=== PATIENT | male | born 1990 | race Caucasian/White ===

== ENCOUNTER 2017-03-03 06:32 | Emergency (ER) | payer SELFPAY ==
[~2017-03-03] VITALS: Ht 182.9 cm; Wt 90.7 kg
[~2017-03-03 06:32] MED LIST: BENTYL10 MG PO
--- NOTE | 2017-03-03 21:01 | EKG ---
[facility] [address] [place], [place] [address] Signed Normal sinus rhythm Incomplete right bundle branch block Borderline ECG No previous ECGs available Confirmed by MARCIA NG MD ([id number]) on 03/03/2017 9:01:32 PM Electronically Signed By: MARCIA NG MD 03/03/172100 PATIENT NAME: SHRADDHA BARFIELD Electrocardiogram DATE OF : [birth year] PHYSICIAN: MARCIA NG MD REPORT #: [id number] REPORT IS CONFIDENTIAL AND NOT TO BE RELEASED WITHOUT AUTHORIZATION
[2017-03-07] MEDS ORDERED: ZITHROMAX250 MG PO (15:25)
== END 2017-03-03 07:18 | disposition home or self-care (01) ==
LOC: ED 06:32
DX: F14.10 Cocaine abuse, uncomplicated (principal); F17.200 Nicotine dependence, unspecified, uncomplicated; Z88.0 Allergy status to penicillin
CPT/HCPCS: 93005; 93010; 99283

== ENCOUNTER 2017-08-15 16:06 | Emergency (ER) | payer MEDICAID ==
[~2017-08-15] VITALS: Ht 195.6 cm; Wt 87.5 kg
[~2017-08-15 16:06] MED LIST changes: +ZITHROMAX250 MG PO
== END 2017-08-15 20:59 | disposition home or self-care (01) ==
LOC: ED 16:06
DX: T15.92XA Foreign body on external eye, part unspecified, left eye, initial encounter (principal); F17.200 Nicotine dependence, unspecified, uncomplicated; Z88.0 Allergy status to penicillin; Z79.2 Long term (current) use of antibiotics
CPT/HCPCS: 99282

== ENCOUNTER 2018-12-06 13:56 | Emergency (ER) | payer SELFPAY ==
[~2018-12-06] VITALS: Ht 195.6 cm; Wt 87.5 kg
--- OUTSIDE RECORDS SUMMARY | ~2018-12-06 | XMS | Clinical Summary ---
Demographics + + + | Address | [address] | | | [place] [address] | + + + | Home Phone | | + + + | Preferred Language | Unknown | + + + | Marital Status | Single | + + + | Anglican Affiliation | Unknown | + + + | Race | Unknown | + + + | Ethnic Group | Unknown | + + + Author + + + | Author | [facility] | | | and [place] | + + + | Organization | [facility] | | | and [place] | + + + | Address | Unknown | + + + | Phone | Unavailable | + + + Care Team Providers + +------+ + | Care Director Of Residence Life Name | Role | Phone | + +------+ + PP | Unavailable | + +------+ + Allergies Not on File Medications Not on file Active Problems Not on file Social History + +-------+ +--------+------+ | Tobacco Use | Types | Packs/Day | Years | Date | | | | | Used | | + +-------+ +--------+------+ | Never Assessed | | | | | + +-------+ +--------+------+ + + + | Sex Assigned at | Date Recorded | | | | + + + | Not on file | | + + + + + + + | Job Start Date | Occupation | Industry | + + + + | Not on file | Not on file | Not on file | + + + + + + + + | Travel History | Travel Start | Travel End | + + + + + + | No recent travel history available. | + + Plan of Treatment + + + + + | Health Maintenance | Due Date | Last Done | Comments | + + + + + | Vaccine: | | | | | Dtap/Tdap/Td (1 - | 1 | | | | Tdap) | | | | + + + + + | Vaccine: Influenza | | | | | (Season Ended) | 9 | | | + + + + + Results Not on filefrom Last 3 Months"
--- OUTSIDE RECORDS SUMMARY | ~2018-12-06 | XMS | Clinical Summary ---
Demographics + + + | Address | [address] | | | [place] [address] | + + + | Home Phone | | + + + | Preferred Language | Unknown | + + + | Marital Status | Single | + + + | Baptism Affiliation | Unknown | + + + | Race | Unknown | + + + | Ethnic Group | Unknown | + + + Author + + + | Author | [facility] | | | and [place] | + + + | Organization | [facility] | | | and [place] | + + + | Address | Unknown | + + + | Phone | Unavailable | + + + Care Team Providers + +------+ + | Care Evp Operations Name | Role | Phone | + [...]
--- OUTSIDE RECORDS SUMMARY | 2018-12-06 13:58 | XMS ---
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 Devorah has no Care Guidelines for this patient. Sujata VISIT COUNT (12 MO.) 1 MELY Perez TOTAL 1 NOTE: Visits indicate total known visits. ED/C VISIT TRACKING (12 MO.) 12/06/2018 13:57 M[facility] Knight [place] TYPE: Emergency COMPLAINT: - BACK PAIN/INJURY INPATIENT VISIT TRACKING (12 MO.) No inpatient visits to display in this time frame [email or web address]
[2018-12-06] MEDS ORDERED: MEDROL4 MG PO (14:28)
[2018-12-06] MEDS ORDERED: NAPROXEN500 MG PO (14:28)
[2018-12-06] MEDS ORDERED: NEURONTIN300 MG PO (14:28)
[2018-12-06] MEDS ORDERED: NORCO 5-325 TA1 EACH PO (14:28)
== END 2018-12-06 16:13 | disposition home or self-care (01) ==
LOC: ED 13:56
DX: M54.16 Radiculopathy, lumbar region (principal); F17.200 Nicotine dependence, unspecified, uncomplicated; Z88.0 Allergy status to penicillin
CPT/HCPCS: 72100; 96372; 99283-25; J1100; J1885

== ENCOUNTER 2018-12-20 00:06 | Emergency (ER) | payer SELFPAY ==
[~2018-12-20] VITALS: Ht 195.6 cm; Wt 87.5 kg
[~2018-12-20 00:06] MED LIST changes: +MEDROL4 MG PO; +NAPROXEN500 MG PO; +NEURONTIN300 MG PO; +NORCO 5-325 TA1 EACH PO
--- OUTSIDE RECORDS SUMMARY | 2018-12-20 00:08 | XMS ---
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 Sujata VISIT COUNT (12 MO.) 1 [facility] [address] TOTAL 3 NOTE: Visits indicate total known visits. ED/UCC VISIT TRACKING (12 MO.) 12/20/2018 00:06 [facility] [place] TYPE: Emergency COMPLAINT: - [facility] DIAGNOSES: - back pain - Procedure and treatment not carried out due to patient leaving prior to being seen by health care provider 12/06/2018 13:57 M[facility] [place] TYPE: Emergency COMPLAINT: - BACK PAIN/INJURY DIAGNOSES: - Radiculopathy, lumbar region - Low back pain - Allergy status to penicillin - Nicotine dependence, unspecified, uncomplicated INPATIENT VISIT TRACKING (12 MO.) No inpatient visits to display in this time frame [id number]
== END 2018-12-20 00:56 | disposition home or self-care (01) ==
LOC: ED 00:06
DX: T40.2X5A Adverse effect of other opioids, initial encounter (principal); T39.1X5A Adverse effect of 4-Aminophenol derivatives, initial encounter; R06.00 Dyspnea, unspecified; F17.200 Nicotine dependence, unspecified, uncomplicated; Z88.0 Allergy status to penicillin
CPT/HCPCS: 99284-25; Q0163

== ENCOUNTER 2022-05-07 15:26 | Observation (INO) | payer OTHER ==
[~2022-05-07] VITALS: Ht 195.6 cm; Wt 87.8 kg
--- NOTE | 2022-05-07 19:58 | NUR ---
05/07/221957 Christina Fox 1907 PT ARRIVED IN PACU NON RESPONSIVE TO NOXIOUS STIMULI WITH OPA IN PLACE. 1914 PT REACTIVE. OPA REMOVED. 1919 PT TRYING TO GET OUT OF BED. REMINDED SURGERY IS OVER AND TO TRY AND RELAX. 1924 PT SNORING. 1934 PT ALERT AND ASKING ABOUT SURGERY. ALL QUESTIONS ANSWERED. R ARM IN SLING. 194 TO ROOM 113. REPORT GIVEN TO RN'S X 3. FAMILY AT BEDSIDE. BED PLUGGED IN.
--- NOTE | 2022-05-07 20:13 | NUR ---
pt ARRIVES TO [facility] FLOOR VIA HOSPITAL BED. PRIMARY RN IN ROOM ASSESSING pt. RIGHT ARM ELEVATED ON PILLOW IN SLING, ICE PACK IN PLACE. FAMILY IN ROOM. ORIENTATION TO ROOM PROVIDED. CALL LIGHT IN REACH.
--- NOTE | 2022-05-07 20:34 | NUR ---
IN PT ROOM FOR ASSESSMENT. FAMILY AT BEDSIDE. PT STATES NO CONCERNS, CURRENTLY NO PAIN DUE TO NERVE BLOCK. PT HAS CALL LIGHT IN REACH, INTAKE ASSESSMENT COMPLETE.
--- NOTE | 2022-05-07 21:59 | NUR ---
IN PT ROOM FOR ROUNDING, MEDICATION ADMINISTRATION, AND VS ASSESSMENT. PT HAS NO COMPLAINT OF PAIN, NO COMPLAINT OF DISCOMFORT. PT CALL LIGHT IN REACH, FAMILY AT BEDSIDE.
--- NOTE | 2022-05-07 23:04 | NUR ---
IN PT ROOM FOR ROUNDING. PT TALKING ON PHONE WITH FRIEND/FAMILY, NO INDICATION OF PAIN OR DISCOMFORT. PT EDUCATED ON PAIN MEDICATION, DID NOT ACKNOWLEDGE THIS RN REGARDING SAID EDUCATION. PT CALL LIGHT IN REACH
--- NOTE | 2022-05-08 00:24 | NUR ---
ICE WATER REFILLED. pt RESTING IN BED ON CELL PHONE, LAUGHING. RIGHT ARM IS ELEVATED. NO ADDITIONAL NEEDS. CALL LIGHT IN REACH.
--- NOTE | 2022-05-08 00:44 | NUR ---
IN PT ROOM FOR ROUNDING. PT STATES NO PAIN, WATCHING A SHOW ON HIS PHONE. PT BREATHING EVEN AND UNLABORED. PT CALL LIGHT IN REACH, FAMILY AT BEDSIDE.
--- NOTE | 2022-05-08 02:36 | NUR ---
IN PT ROOM FOR ASSIST TO TOILET, PAIN MEDICATION. PT STATES HE IS STARTING TO GAIN FEELING IN HIS HAND THAT WAS NERVE BLOCKED. PT CALL LIGHT IN REACH, FAMILY AT BEDSIDE. UPON ASSESSMENT PT STATES HE IS REGAINING SENSATION IN FINGER TIPS, PERFUSING WELL.
--- NOTE | 2022-05-08 03:46 | NUR ---
IN PT ROOM FOR ROUNDING. PT RESTING WATCHING TV ON HIS PHONE, DENIES PAIN OR DISCOMFORT. PT CALL LIGHT IN REACH, FAMILY AT BEDSIDE.
--- NOTE | 2022-05-08 05:49 | NUR ---
IN PT ROOM FOR ROUNDING, MEDICATION ADMINISTRATION. PT RESTING, SAYS HE IS STARTING TO BE ABLE TO FEEL HIS FINGERS. P[T HAS NO COMPLAINT OF PAIN OR DISCOMFORT AT THIS TIME, CALL LIGHT IN REACH.
--- NOTE | 2022-05-08 07:24 | NUR ---
PT RESTING EYES CLOSED AT TIME OF SHIFT REPORT. RIGHT HAND IS IN AN ELEVATED POSITION. MOTHER PRESENT IN THE ROOM. CALL LIGHT AND NEEDED ITEMS AT BEDSIDE.
--- NOTE | 2022-05-08 07:49 | CONS ---
[facility] [address] [place], [place] [address] Signed DATE OF CONSULTATION: 05/07/2022 REASON FOR CONSULTATION: I was asked by the ER doctor to see the patient regarding right hand injury. HISTORY OF PRESENT ILLNESS: The patient is a 31-year-old gentleman, who was working on a vehicle with motor running, when he slipped, and his hand went into the fan blade and was hit several times. He comes in with lacerations to the dorsum of the right thumb and right index finger. He has significant pain, but that is controlled with pain medication. He is not able to extend the thumb and has decreased sensation to the thumb and the radial aspect of the index finger. PAST MEDICAL HISTORY: Kidney issues. CURRENT MEDICATIONS: None. SOCIAL HISTORY: Current everyday smoker, occasional marijuana user, no our drugs. No IV drugs. ALLERGIES: Penicillin. PAST SURGICAL HISTORY: None. PHYSICAL EXAMINATION: GENERAL: He is alert and oriented to person, place, and time. EXTREMITIES: He has no other injuries except for these isolated right hand injuries. He has a 3 cm transverse laceration to the dorsum of the right thumb at the IP joint. There is no active extension. He has a complex stellate laceration measuring approximately 12 cm in total length over the dorsum of the index finger at the MP joint. He does have good MP extension. There is traumatic arthrotomy of both the thumb and the index finger. The remainder of the hand looks intact. The remainder of the upper extremity is intact. Lower extremities are benign. HEENT: Clear. Pupils are equal and reactive. NECK: Supple without lymphadenopathy or JVD. CHEST: Clear to auscultation. Regular rate and rhythm. ABDOMEN: Benign. ASSESSMENT: Electronically Signed By: MONIQUE BLANCO MD 05/08/22 0749 PATIENT NAME: SHRADDHA BARFIELD CONSULTATION DATE OF : [birth year] REPORT #: [id number] PHYSICIAN: MONIQUE BLANCO MD PCP: MT MARTIN NP REPORT IS CONFIDENTIAL AND NOT TO BE RELEASED WITHOUT AUTHORIZATION [facility] [address] [place], [place] [address] Signed 1. Traumatic arthrotomies, right thumb and MP joint right index. 2. Extensor laceration, right thumb. 3. Possible extensor laceration, right index. PLAN: He has traumatic arthrotomies and at least one tendon laceration. These wounds need to be cleaned out and explored and the extensor tendons repaired as possible. It is possible that the EPL is not repairable and will need a 2nd operation. This was discussed with the patient and he understands. We will plan on going to the OR emergently. Risks, benefits, and alternatives were discussed and he understands, wishes to proceed. Monique Blanco MD BA/NALDOL /[id number] Copies: ~ Electronically Signed By: MONIQUE BLANCO MD 05/08/22 0749 PATIENT NAME: SHRADDHA BARFIELD CONSULTATION DATE OF : [birth year] REPORT #: [id number] PHYSICIAN: MONIQUE BLANCO MD PCP: MT MARTIN NP REPORT IS CONFIDENTIAL AND NOT TO BE RELEASED WITHOUT AUTHORIZATION
--- NOTE | 2022-05-08 07:49 | OR ---
[facility] [address] [place], [place] [address] Signed DATE OF OPERATION: 05/07/2022 SURGEON: Monique Blanco MD PREOPERATIVE DIAGNOSIS: Partial amputation of his traumatic right thumb and index. POSTOPERATIVE DIAGNOSIS: Partial amputation of his traumatic right thumb and index. PROCEDURE PERFORMED: Irrigation and debridement, skin, subcutaneous tissue, and bone, open reduction and internal fixation, right index metacarpal and thumb proximal phalanx. RIG SUPERINTENDENT: Darlene Osorio PA-C. Darlene was present in critical for all portions of procedure. ANESTHESIA: General. BLOOD LOSS: None. TOURNIQUET TIME: 63 minutes. IMPLANTS: One 1.6 and two 1.25 K-wires. BRIEF HISTORY: Shraddha is a 31-year-old gentleman who was working on a motor vehicle at his place of employment apparently. He slipped and his hand went into the fan blades of a running motor. This caused the traumatic injuries to his right hand. He was immediately rushed to the emergency department and I was contacted and saw the patient in the emergency department. Risks and benefits of washout and initial stabilization of this were discussed with him. I did advise him and his family that I was unlikely be able to complete all the repairs for this traumatic injury, but that we would try to get it closed and stabilized. They understood and elected to proceed. Electronically Signed By: MONIQUE BLANCO MD 05/08/22 0749 PATIENT NAME: SHRADDHA BARFIELD OPERATIVE REPORT DATE OF : [birth year] REPORT #: [id number] PHYSICIAN: MONIQUE BLANCO MD PCP: MT MARTIN NP REPORT IS CONFIDENTIAL AND NOT TO BE RELEASED WITHOUT AUTHORIZATION [facility] [address] [place], [place] [address] Signed DESCRIPTION OF PROCEDURE: Once consent was obtained, he was taken to the operating room. After adequate anesthesia, he was placed on the operating table on the hand table. 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 He was then prepped and draped and the exploration began. There was a T-type comminuted fracture to the proximal phalanx distal end of the thumb. The extensor pollicis longus was transected and it appeared dissection was missing. There was a traumatic arthrotomy as well. The index finger showed a comminuted fracture to the distal metacarpal. This involved both coronal and sagittal planes at least seven pieces were noted. The extensor tendons to the index were intact. Prior to the surgery. The patient did state that he could feel both his thumb and his index finger and had good capillary refill. The laceration to the index metacarpal extended through the web space up over the dorsum with several flaps about 5-6 cm long. All skin flaps appeared to be viable at the time of the surgery. We then cleaned both lacerations and debrided them of any dirt and soil as well as grease. There was some bloodshot tissue that was removed as well. The two condyles for the thumb phalanx were then reduced and a single 1.6 mm K-wire was run from the distal tip of the distal phalanx across the joint engaging the body of the proximal phalanx holding the thumb still. The condyles were reduced back into place. I attempted to place 1 mm K-wire, however, it kept displacing the fracture fragment, so I elected to leave it out. They were then sutured into place and the skin was closed with 3-0 nylon. Again, approximately a centimeter to a [id number] of the extensor pollicis longus was currently missing. The metacarpal fracture to the index was then reduced and two K-wires were placed in a crossed fashion to stabilize the multiple bone fragments. I elected not to place a plate and screws due to the extensively comminuted nature of the bone and the extensive contamination was present pretty much everywhere. We then sutured the skin flaps and repaired the lacerations with 3-0 nylon. Good skin closure with no abnormal tension was noted. We did then released the tourniquet and he showed good capillary refill in both the thumb and the index finger prior to applying a bulky hand dressing. Jurgan balls were placed on the pins and they were cut and Xeroform was placed over the wounds. He was then placed in a bulky hand dressing, awakened, taken to the recovery room in satisfactory condition. All sponge, needle, and instrument counts were correct. Monique Blanco MD BA/MODL /[id number] Electronically Signed By: MONIQUE BLACNO MD 05/08/22 0749 PATIENT NAME: SHRADDHA BARFIELD OPERATIVE REPORT DATE OF : [birth year] REPORT #: [id number] PHYSICIAN: MONIQUE BLANCO MD PCP: MT MARTIN NP REPORT IS CONFIDENTIAL AND NOT TO BE RELEASED WITHOUT AUTHORIZATION [facility] [address] [place] [address] Signed Copies: ~ Electronically Signed By: MONIQUE BLANCO MD 05/08/22 0749 PATIENT NAME: SHRADDHA BARFIELD OPERATIVE REPORT DATE OF : [birth year] REPORT #: [id number] PHYSICIAN: MONIQUE BLANCO MD PCP: MT MARTIN NP REPORT IS CONFIDENTIAL AND NOT TO BE RELEASED WITHOUT AUTHORIZATION
--- NOTE | 2022-05-08 07:59 | NUR ---
DR MANN IN TO SEE PT DISCUSSED PLANS GOING FORWARD. ALL QUESTIONS ANSWERED. UNDERSTANDING VERBALIZED.
--- NOTE | 2022-05-08 08:40 | NUR ---
Spoke with pt and his mother, Sakina. They state plan is to dc today to go for a preop appt with Dr. Moss in [facility] for further hand surgery tomorrow. Pt currently lives with his parents. He works for [employer] [phone]. He was at work when injury happened. Mom states she will drive he to [facility] when pt he discharged. She and he deny further needs and plan on dc this morning.
--- NOTE | 2022-05-08 09:24 | NUR ---
VERBAL ORDERS TO DC PATIENT AFTER ABX IF THEY ARE DUE WITHIN THE HOUR, OTHER PINEDA JUST DC.
--- NOTE | 2022-05-08 09:24 | NUR ---
NO WRITTEN/ELECTRONIC ORDERS FOUND FOR DC PHONED DR MANN FOR CLARIFICATION. CONFIRMED DC PT. SPOKE WITH PT HER VERBALIZES HIS UNDERSTANDING THAT HE IS TO BE DC'D THEN DR MANN WILL CONTACT HIM LATER ABOUT WHAT TIME HE IS TO MEET WITH HAND SPECIALIST.
[2022-05-08] MEDS ORDERED: HYDROCODON-ACE1 EA11 PO (09:25)
--- NOTE | 2022-05-08 09:48 | NUR ---
PT SITTING UP IN BED TALKING ON THE PHONE, TOLERATES MORNING MEAL, DENIES NEED OF MORE FOOD. AGREES PAIN IS CONTOLLED BUT HE FEELS IT'S INCREASING
== END 2022-05-08 10:24 | disposition home or self-care (01) ==
LOC: ED 15:26 → MS 15:27
PROVIDERS: ADMIT Specialist; ATTEND Specialist
PROC: 0PSR04Z Reposition Right Thumb Phalanx with Internal Fixation Device, Open Approach (ICD-10-PCS; 2022-05-07)
PROC: 0PSP04Z Reposition Right Metacarpal with Internal Fixation Device, Open Approach (ICD-10-PCS; principal; 2022-05-07 17:18)
DX: S68.521A Partial traumatic transphalangeal amputation of right thumb, initial encounter (principal); S68.620A Partial traumatic transphalangeal amputation of right index finger, initial encounter; G89.18 Other acute postprocedural pain; F17.200 Nicotine dependence, unspecified, uncomplicated; W31.89XA Contact with other specified machinery, initial encounter; Y99.0 Civilian activity done for income or pay; Z20.822 Contact with and (suspected) exposure to COVID-19; Z88.0 Allergy status to penicillin; Z88.7 Allergy status to serum and vaccine
CPT/HCPCS: 64417; 73120; 73130; 76942; 87502; 96374; 96375; 96376; 99284-25; A9270; C9803; G0378; J0690; J1100; J1170; J1885; J2001; J2250; J2405; J2704; J2795; J7121; U0003